=== PATIENT | female | born 1980 | race Two or more races ===

== ENCOUNTER 2018-07-16 19:45 | Emergency (ER) | payer MEDICAID ==
[~2018-07-16] VITALS: Ht 162.6 cm; Wt 68.0 kg
[2018-07-16] MEDS ORDERED: REMERON15 M1 ORAL (19:54)
[2018-07-16] MEDS ORDERED: DEPAKOTE500 MG PO (19:54)
[2018-07-16 19:55] VITALS: BP 109/66
--- NOTE | 2018-07-16 19:55 | NUR ---
ED Nurse Note: Patient presents to ED with friend c/o generalized body aches, cough, and dizziness for 2xdays.
--- NOTE | 2018-07-16 20:13 | Emergency Room Report ---
History of Present Illness General Chief Complaint: Flu Like Symptoms Source: Patient Present Illness HPI 38-year-old female patient presents the ER complaining of "flulike symptoms" for the past 2 days. States fever at home, reports 101, patient currently has a fever of 100.0 while in the ER. Denies vomiting, reports nausea. States has not been eating food, states is been able to tolerate p.o. fluids. Reports dizziness during this time. Denies fainting or syncope. Reports generalized body pain and aches. Denies neck or calf pain. Denies recent travel. Denies contacts with similar symptoms. Denies chest pain, shortness of breath, abdominal pain. Denies calf pain. Reports dry cough. Denies hemoptysis. States did not get flu vaccination this year, states "don't ever get flu shots" . Denies smoking. Denies hx of asthma or MT. Denies dysuria, hematuria. Allergies: Coded Allergies: No Known Allergies (Unverified , 07/16/18) Patient History Past Medical History: see triage record Last Menstrual Period: 07/06/2018 Now: No : 5 Para: 5 Reviewed Nursing Documentation: PMH: Agreed; PSxH: Agreed Nursing Documentation-PMH Past Medical History: No History, Except For Hx Hypertension: No - hypotension History Of Psychiatric Problem: Yes - bipolar Review of Systems All Other Systems: negative except mentioned in HPI Physical Exam Vital Signs Date Time Temp Pulse Resp B/P (MAP) Pulse Ox O2 Delivery O2 Flow Rate FiO2 07/16/18 19:49 100.0 99 16 109/66 96 Room Air Sp02 EP Interpretation: reviewed, normal General Appearance: well appearing, no apparent distress, alert, GCS 15, non- toxic Head: normocephalic, atraumatic Eyes: bilateral eye normal inspection, bilateral eye PERRL ENT: hearing grossly normal, normal pharynx, no angioedema, normal voice, uvula midline, moist mucus membranes Neck: full range of motion, no meningismus, no bony tend Respiratory: lungs clear, normal breath sounds, no rhonchi, no respiratory distress, no accessory muscle use, no wheezing, speaking full sentences Cardiovascular #1: regular rate, rhythm, no edema, normal capillary refill Musculoskeletal: back normal, digits/nails normal, gait/station normal, normal range of motion, non-tender, no calf tenderness, Tanya's Sign negative Neurologic: alert, oriented x3, responsive, motor strength/tone normal, sensory intact, other - Negative Kernig, negative Brudzinski Psychiatric: mood/affect normal Skin: no rash, normal turgor Medical Decision Making PA Attestation Dr. Covarrubias is my supervising Physician whom patient management has been discussed with. Diagnostic Impression: Primary Impression: Influenza A ER Course Pt presents to ED c/o cough and flulike symptoms. DDX considered but are not limited to influenza, viral URI, pneumonia, strep throat, rhinitis, sinusitis, otitis media, otitis externa. Negative Kernig, negative Brudzinski, low suspicion for meningitis. VITAL SIGNS are WNL, patient is afebrile. Temperature 100.0, will provide patient with Tylenol in the ER. ER COURSE: Provide patient with Tylenol, Zofran, IV fluids. Lungs clear to auscultation, no wheezes, rhonci or rales. CXR negative for acute disease, no focal consolidation consistent with pneumonia. Does not require antibiotics at this time. UA negative for infection, urine appears concentrated, ketones present, provided patient with IV fluids. Urine negative. Flu swab positive for influenza A. Will provide patient with single dose of Tamiflu in the ER, discharged home with prescription for Tamiflu. Symptomatic treatment. drink plenty of fluids. Take Tylenol for pain and fever symptoms. Followup with PCP for further treatment and/or referral as needed. ER precautions given. DISCHARGE: Rx provided for Tylenol Rx provided for Tamiflu At this time pt is stable for d/c to home. Patient is resting comfortably, in no acute distress, nontoxic appearing. Patient to take medications as instructed Will provide with patient care instructions and any necessary prescriptions. Care plan and follow-up instructions provided. Patient instructed to follow-up with primary care provider in 3 - 5 days. Patient questions asked and answered. Patient reports understanding and agreement to treatment plan. ER precautions given. Patient instructed to return to ER immediately for any new or worsening of symptoms including but not limited to increasing SOB, persistent fever, intractable vomiting. - Please note that this Emergency Department Report was dictated using zumatekferry operator technology software, occasionally this can lead to erroneous entry secondary to interpretation by the dictation equipment. Labs Test 07/16/18 20:28 Urine Color Suzette Urine Appearance Clear Urine pH 5 (4.5-8.0) Urine Specific [place] 1.030 (1.005-1.035) Urine Protein 1+ (NEGATIVE) Urine Glucose (UA) Negative (NEGATIVE) Urine Ketones 2+ (NEGATIVE) Urine Blood 1+ (NEGATIVE) Urine Nitrite Negative (NEGATIVE) Urine Bilirubin Negative (NEGATIVE) Urine Ictotest Negative (NEGATIVE) Urine Urobilinogen Normal MG/DL (0.0-1.0) Urine Leukocyte Esterase 1+ (NEGATIVE) Urine RBC 0 /HPF (0 - 2) Urine WBC 5-10 /HPF (0 - 2) Urine Squamous Epithelial Cells Few /LPF (NONE/OCC) Urine Bacteria Few /HPF (NONE) Urine Mucus Moderate /LPF (NONE/OCC) Urine HCG, Qualitative Negative (NEGATIVE) Chest X-Ray Diagnostic Results Chest X-Ray Diagnostic Results : Chest X-Ray Ordered: Yes # of Views/Limited/Complete: 1 View Indication: Chest Pain EP Interpretation: Yes PA Xray: Interpretation reviewed, and agrees with findings. Interpretation: no consolidation, no effusion, no pneumothorax, no acute cardiopulmonary disease Impression: No acute disease PA Scribe Text Jordan Romeo PA-C Last Vital Signs Date Time Temp Pulse Resp B/P (MAP) Pulse Ox O2 Delivery O2 Flow Rate FiO2 07/16/18 19:49 100.0 99 16 109/66 96 Room Air Status: improved Disposition: HOME, SELF-CARE Condition: Stable Scripts Oseltamivir Phosphate (Tamiflu) 75 Mg Capsule 75 MG ORAL TWICE A DAY for 5 Days, CAP Prov: Bin Romeo 07/16/18 Acetaminophen* (TYLENOL EXTRA STRENGTH*) 500 Mg Tablet 500 MG ORAL Q8H PRN for Prn Headache/Temp > 101, #30 TAB 0 Refills Prov: Bin Romeo 07/16/18 Patient Instructions: Influenza, Adult, [id number] Additional Instructions: Followup with primary care provider in 2-3 days. Take medications as directed. Patient questions asked and answered. ER precautions given, patient instructed to return to ER immediately for any new or worsening of symptoms. Bin Romeo Jul 16, 2018 20:13
[2018-07-16] MEDS ORDERED: Acetaminophen 500mg (ES) tab ORAL ONE (20:15)
[2018-07-16 20:45] LABS: APPEARANCE,URINE CLEAR; BILIRUBIN, URINE NEGATIVE (NEGATIVE); COLOR,URINE AMBER; GLUCOSE, URINE (UA) NEGATIVE (NEGATIVE); KETONES,URINE 2+ (NEGATIVE); LEUKOCYTE ESTERASE ,URINE 1+ (NEGATIVE); NITRITE,URINE NEGATIVE (NEGATIVE); PH,URINE 5 (4.5-8.0); PROTEIN,URINE 1+ (NEGATIVE); UROBILINOGEN,URINE NORMAL MG/DL (0.0-1.0)
[2018-07-16] MEDS ORDERED: Oseltamivir 75mg cap ORAL ONE (21:15)
[2018-07-16] MEDS ORDERED: TAMIFLU75 MG ORAL (21:29)
[2018-07-16] MEDS ORDERED: TYLENOL EXTRA500 MG ORAL (21:29)
[2018-07-16 22:03] VITALS: BP 109/66
--- NOTE | 2018-07-16 22:03 | NUR ---
ED Nurse Note: pt was cleared for discharge by thao. discharge instruction and prescription explained and pt able to verbalize understanding. pt aox4. vss.iv and id band removed. pt able to walk with steady gait. pt left the ed with all belongings
[2018-07-17] MEDS ORDERED: Oseltamivir 75mg cap ORAL ONE (09:00)
--- NOTE | 2018-07-17 13:12 | Diagnostic Imaging Report ---
Indication: Cough Comparison: None A single view chest radiograph was obtained. Findings: Cardiomediastinal appearance is within normal limits for age. The lungs are clear. Pulmonary vascularity is appropriate. The diaphragmatic contour is smooth and costophrenic angles are sharp. No pleural effusions are identified. The bones are unremarkable. Impression: No acute findings
== END 2018-07-16 22:03 | disposition home or self-care (01) ==
LOC: EMR 20:30
DX: J10.1 Influenza due to other identified influenza virus with other respiratory manifestations (principal); F31.9 Bipolar disorder, unspecified
CPT/HCPCS: 71045; 81003; 81025; 86710; 96360; 99284

== ENCOUNTER 2018-12-11 18:07 | Emergency (ER) | payer MEDICAID ==
[~2018-12-11] VITALS: Ht 162.6 cm; Wt 77.1 kg
[~2018-12-11 18:07] MED LIST: DEPAKOTE500 MG PO; REMERON15 M1 ORAL; TAMIFLU75 MG ORAL; TYLENOL EXTRA500 MG ORAL
[2018-12-11 18:11] VITALS: BP 114/68
--- NOTE | 2018-12-11 18:40 | Emergency Room Report ---
History of Present Illness General Chief Complaint: Sore Throat Source: Patient Present Illness HPI 38-year-old female with no significant past medical history here complaining of 1 day of sore throat and fever of 100.3. Patient is rating the pain 10 out of 10 without radiation, denying cough and congestion. Denies shortness of breath , palpitation, chest pain, nausea vomiting and abdominal pain. Patient also complains of urinary frequency x1 day however denies dysuria. Patient reports that she was sexually active yesterday and wants to be tested actually transmitted diseases however denies any vaginal discharge. Denies flank pain, suprapubic pain, no other associated symptoms Allergies: Coded Allergies: No Known Allergies (Unverified , 07/16/18) Patient History Past Medical History: see triage record Past Surgical History: unable to obtain Pertinent Family History: none Now: No Immunizations: UTD Reviewed Nursing Documentation: PMH: Agreed; PSxH: Agreed Nursing Documentation-PMH Past Medical History: No History, Except For Hx Hypertension: No - hypotension Review of Systems All Other Systems: negative except mentioned in HPI Physical Exam Vital Signs Date Time Temp Pulse Resp B/P (MAP) Pulse Ox O2 Delivery O2 Flow Rate FiO2 12/11/18 18:11 98.2 84 18 114/68 (83) 99 Room Air Sp02 EP Interpretation: reviewed, normal General Appearance: normal inspection, well appearing, no apparent distress, alert, GCS 15 Head: normocephalic, atraumatic Eyes: bilateral eye normal inspection, bilateral eye PERRL ENT: TMs + canals normal, uvula midline, tonsillar swelling, pharyngeal erythema, tonsillar exudate Neck: normal inspection, full range of motion, supple, thyroid normal, no meningismus Respiratory: normal inspection, chest non-tender, lungs clear, no wheezing Cardiovascular #1: normal inspection, regular rate, rhythm, no edema Gastrointestinal: normal inspection, normal bowel sounds, soft Rectal: deferred Genitourinary: no CVA tenderness Musculoskeletal: normal inspection, back normal Neurologic: normal inspection, alert Psychiatric: normal inspection, judgement/insight normal Skin: normal inspection, normal color, no rash, warm/dry Lymphatic: normal inspection, no adenopathy Medical Decision Making PA Attestation All my diagnosis and treatment plans were reviewed ad discussed with my supervising physician Dr. Ward Diagnostic Impression: Primary Impression: Strep pharyngitis Additional Impression: UTI (urinary tract infection) ER Course 38-year-old female with no significant past medical history here complaining of 1 day of sore throat and fever of 100.3. Patient is rating the pain 10 out of 10 without radiation, denying cough and congestion. Denies shortness of breath , palpitation, chest pain, nausea vomiting and abdominal pain. Patient also complains of urinary frequency x1 day however denies dysuria. Patient reports that she was sexually active yesterday and wants to be tested actually transmitted diseases however denies any vaginal discharge. Denies flank pain, suprapubic pain, no other associated symptoms Ddx considered but are not limited to: strep pharyngitis, URI, tonsilitis, peritonsillar absacess, influneza , UTI, pyelonephritis Vital signs: are WNL, pt. is afebrile H&PE are most consistent with: UTI strep pharyngitis ORDERS: UA, azithromycin ED INTERVENTIONS: None required at this time. She is to follow-up with her primary care provider if vaginal discharge and symptoms continue azithromycin to cover both strep pharyngitis and UTI since patient has no vaginal discharge be tested with primary care provider she agrees with the above treatment DISCHARGE: At this time pt. is stable for d/c to home. Will provide printed patient care instructions, and any necessary prescriptions. Care plan and follow up instructions have been discussed with the patient prior to discharge. Last Vital Signs Date Time Temp Pulse Resp B/P (MAP) Pulse Ox O2 Delivery O2 Flow Rate FiO2 12/11/18 18:11 98.2 84 18 114/68 99 Room Air Disposition: HOME, SELF-CARE Condition: Stable Scripts Azithromycin* (ZITHROMAX*) 250 Mg Tablet 250 MG ORAL DAILY, #6 TAB 0 Refills Take two tables once daily for 1 day, then one tablet once daily for 4 days. Prov: Lavinia Armstrong 12/11/18 Patient Instructions: Urinary Tract Infection Additional Instructions: Follow-up with your primary care provider for further testing if needed Lavinia Armstrong Dec 11, 2018 18:40
[2018-12-11] MEDS ORDERED: ZITHROMAX250 MG ORAL (18:41)
[2018-12-11 18:47] VITALS: BP 120/72
--- NOTE | 2018-12-11 18:48 | NUR ---
ER DISCHARGE NOTE: Patient is cleared to be discharged per PA, pt is aox4, on room air, with stable vital signs. pt was given dc and prescription instructions, pt was able to verbalize understanding, pt id band removed. pt is able to ambulate with steady gait. pt took all belongings.
[2018-12-11 19:07] LABS: APPEARANCE,URINE SLIGHTLY CLOUDY; BILIRUBIN, URINE NEGATIVE (NEGATIVE); GLUCOSE, URINE (UA) NEGATIVE (NEGATIVE); KETONES,URINE NEGATIVE (NEGATIVE); LEUKOCYTE ESTERASE ,URINE 3+ (NEGATIVE); NITRITE,URINE NEGATIVE (NEGATIVE); PH,URINE 5 (4.5-8.0); PROTEIN,URINE 1+ (NEGATIVE); UROBILINOGEN,URINE NORMAL MG/DL (0.0-1.0)
[2018-12-11 19:09] LABS: COLOR,URINE YELLOW
== END 2018-12-11 18:47 | disposition home or self-care (01) ==
LOC: EMR 18:30
DX: J02.0 Streptococcal pharyngitis (principal); N39.0 Urinary tract infection, site not specified
CPT/HCPCS: 81001; 87086; 99283

== ENCOUNTER 2019-01-21 11:31 | Emergency (ER) | payer MEDICAID ==
[~2019-01-21] VITALS: Ht 162.6 cm; Wt 77.1 kg
[~2019-01-21 11:31] MED LIST changes: +ZITHROMAX250 MG ORAL
[2019-01-21 11:35] VITALS: BP 109/61
--- NOTE | 2019-01-21 11:40 | NUR ---
ED Nurse Note: Patient walked into ED c/o left cheek scratch that happened on 01/18/19 and rash started to break out since then. patient reports the rash is only on her face and it is itchy. patient is alert awake x4 ambulatory, breathing unlabored and even.
[2019-01-21] MEDS ORDERED: MEDROL DOSEPAK4 MG ORAL (11:59)
--- NOTE | 2019-01-21 11:59 | Emergency Room Report ---
History of Present Illness General Chief Complaint: Skin Rash/Abscess Source: Patient Present Illness HPI 39-year-old female, no past medical history, no surgical history presents with rash bilaterally on her face, she states it itches, it started 3 days prior to arrival, patient states she cut up some leaves, it did not water and applied it to her face, she states she broke out with hives on face, chest pain, no shortness of breath Allergies: Coded Allergies: No Known Allergies (Unverified , 07/16/18) Patient History Past Medical History: see triage record Last Menstrual Period: 01/21/19 Now: No Reviewed Nursing Documentation: PMH: Agreed; PSxH: Agreed Nursing Documentation-PMH Past Medical History: No History, Except For Hx Hypertension: No - hypotension Review of Systems All Other Systems: negative except mentioned in HPI Physical Exam Vital Signs Date Time Temp Pulse Resp B/P (MAP) Pulse Ox O2 Delivery O2 Flow Rate FiO2 01/21/19 11:35 98.1 70 20 109/61 96 Room Air Sp02 EP Interpretation: reviewed, normal General Appearance: well appearing, no apparent distress, alert Head: normocephalic, atraumatic Eyes: bilateral eye PERRL, bilateral eye EOMI ENT: uvula midline, moist mucus membranes Neck: supple, thyroid normal, supple/symm/no masses Respiratory: lungs clear, no respiratory distress, no retraction, no accessory muscle use Cardiovascular #1: normal peripheral pulses, regular rate, rhythm, no edema, no gallop, no murmur Gastrointestinal: non tender, soft, no guarding, no rebound Musculoskeletal: normal inspection Neurologic: alert, oriented x3 Psychiatric: mood/affect normal Skin: rash - Rash bilateral face, hives present, warm/dry Medical Decision Making Diagnostic Impression: Primary Impression: Rash and other nonspecific skin eruption ER Course Patient with nondescript rash, most likely an allergic reaction to the plan she rubbed against her face, return precautions discussed follow-up with PCP, will order Medrol Dosepak Last Vital Signs Date Time Temp Pulse Resp B/P (MAP) Pulse Ox O2 Delivery O2 Flow Rate FiO2 01/21/19 11:35 98.1 70 20 109/61 (77) 96 Room Air Disposition: HOME, SELF-CARE Condition: Stable Scripts Methylprednisolone (Methylprednisolone*) 4MG Dspk 4 MG ORAL DIRECTED for 6 Days, #21 EA 0 Refills Day 1: Two tablets before breakfast, one after lunch, one after dinner, and two at bedtime. If started late in the day, take all six tablets at once or divide into two or three doses, unless otherwise directed by prescriber. Day 2: One tablet before breakfast, one after lunch, one after dinner, and two at bedtime Day 3: One tablet before breakfast, one after lunch, one after dinner, and one at bedtime Day 4: One tablet before breakfast, one after lunch, and one at bedtime Day 5: One tablet before breakfast and one at bedtime Day 6: One tablet before breakfast Prov: Price Small M.D. 01/21/19 Referrals: [facility] Patient Instructions: Rash Additional Instructions: The patient was provided with discharge instructions, notified to follow-up with a primary care doctor and or specialist in the next 24-48 hours, and to return to the ED if they have worsening of their symptoms. Please note that this report is being documented using [employer] technology. This can lead to erroneous entry secondary to incorrect interpretation by the dictating instrument. Price Small M.D. Jan 21, 2019 11:59
[2019-01-21 12:04] VITALS: BP 109/61
--- NOTE | 2019-01-21 12:04 | NUR ---
ER DISCHARGE NOTE: Patient is cleared to be discharged per ERMD DR SCHOFIELD, pt is aox4, on room air, with stable vital signs. pt was given dc and prescription instructions, pt was able to verbalize understanding, pt id band removed without complications. pt is able to ambulate with steady gait. pt took all belongings.
[2019-01-21] MEDS ORDERED: BENADRYL CRE1 APPLIC TOPIC (12:11)
== END 2019-01-21 12:04 | disposition home or self-care (01) ==
LOC: EMR 12:00
DX: R21 Rash and other nonspecific skin eruption (principal)
CPT/HCPCS: 99282

== ENCOUNTER 2019-05-08 11:02 | Emergency (ER) | payer MEDICAID ==
[~2019-05-08] VITALS: Ht 162.6 cm; Wt 77.1 kg
[~2019-05-08 11:02] MED LIST changes: +BENADRYL CRE1 APPLIC TOPIC; +MEDROL DOSEPAK4 MG ORAL
[2019-05-08 11:30] VITALS: BP 116/76
--- NOTE | 2019-05-08 11:34 | NUR ---
ED Nurse Note: Patient walked into ED C/O of itchiness and burning on right hand, between middle and ring finger and vaginal itching. Pt reports she has been anxious and scratching herself for 2 months. 9/10 on pain scale. A/Ox4; ambulatory.
--- NOTE | 2019-05-08 11:56 | NUR ---
ED Nurse Note: urine sent to lab
[2019-05-08] MEDS ORDERED: ATARAX25 MG ORAL (12:00)
[2019-05-08] MEDS ORDERED: BETAMETHASONE D15 G1 TP (12:00)
[2019-05-08 12:23] VITALS: BP 116/76
--- NOTE | 2019-05-08 12:26 | NUR ---
ED Nurse Note: thao sullivan done no nsg orders. I was in the room during vag exam with thao.
--- NOTE | 2019-05-08 12:27 | NUR ---
ER DISCHARGE NOTE: Patient is cleared to be discharged per ERMD, pt is aox4, on room air, with stable vital signs. pt was given dc and prescription instructions, pt was able to verbalize understanding, pt id band removed without complications. pt is able to ambulate with steady gait. pt took all belongings.
--- NOTE | 2019-05-08 21:50 | Emergency Room Report ---
History of Present Illness General Chief Complaint: Pain Source: Patient Present Illness HPI Skin rash to hand and vulvar area. increased itching. Denies recent intercourse. No fever. Allergies: Coded Allergies: No Known Allergies (Unverified , 07/16/18) Patient History Past Medical History: see triage record Last Menstrual Period: 05/05/19 Now: No Reviewed Nursing Documentation: PMH: Agreed; PSxH: Agreed Nursing Documentation-PMH Past Medical History: No History, Except For Hx Hypertension: No - hypotension History Of Psychiatric Problem: Yes - BIPOLAR DISORDER Review of Systems All Other Systems: negative except mentioned in HPI Physical Exam Vital Signs Date Time Temp Pulse Resp B/P (MAP) Pulse Ox O2 Delivery O2 Flow Rate FiO2 05/08/19 11:06 98.4 74 17 116/76 (89) 99 Room Air General Appearance: well appearing, no apparent distress, alert, GCS 15 Head: normocephalic, atraumatic ENT: hearing grossly normal, normal voice Neck: full range of motion, supple Respiratory: no respiratory distress, speaking full sentences Cardiovascular #1: normal inspection Gastrointestinal: normal inspection, soft Genitourinary: other - excortiation to external genitalia Musculoskeletal: normal inspection Neurologic: normal inspection, alert, oriented x3, responsive, normal gait Psychiatric: mood/affect normal Skin: no rash, other - excoriation Medical Decision Making Diagnostic Impression: Primary Impression: Skin rash ER Course Patient given prescription for steroid cream. Advised NOT to use on genital area. Last Vital Signs Date Time Temp Pulse Resp B/P (MAP) Pulse Ox O2 Delivery O2 Flow Rate FiO2 05/08/19 12:23 98.4 80 17 116/76 99 Room Air Status: improved Disposition: HOME, SELF-CARE Condition: Stable Scripts Hydroxyzine HCl (Hydroxyzine HCl) 25 Mg Tablet 25 MG ORAL FOUR TIMES A DAY, #30 TAB Prov: Edgar Covarrubias MD 05/08/19 Betamet Diprop/Prop Gly (BETAMETHASONE DP AUG 0.05% OIN) 15 Gm Oint...g. 15 GM TP TWICE A DAY for 7 Days, GM Prov: Edgar Covarrubias MD 05/08/19 Referrals: [facility],REFERRING (PCP) Patient Instructions: Eczema Additional Instructions: Follow up with your primary care physician for recheck. Return if worse Edgar Covarrubias MD May 08, 2019 21:50
== END 2019-05-08 12:27 | disposition home or self-care (01) ==
LOC: EMR 12:02
DX: R21 Rash and other nonspecific skin eruption (principal); F31.9 Bipolar disorder, unspecified
CPT/HCPCS: 99283